=== PATIENT | female | born 1975 | race Caucasian/White ===

== ENCOUNTER 2017-07-16 17:48 | Emergency (ER) | payer BC ==
[~2017-07-16] VITALS: Ht 152.4 cm; Wt 72.6 kg
[~2017-07-16 17:48] MED LIST: AMOXIL500 MG PO; CELEXA20 MG PO; INDERAL80 MG PO; MOTRIN800 MG PO; NEXIUM2.5 MG PO; PEPCID20 MG PO; ROBITUSSIN-AC 160 ML PO; VITAMIN D50000 I3 PO
[2017-07-16 17:59] VITALS: BP 140/79
[2017-07-16] MEDS ORDERED: ANAPROX DS550 MG PO (18:44)
== END 2017-07-16 20:06 | disposition home or self-care (01) ==
LOC: ED 17:48
DX: S93.402A Sprain of unspecified ligament of left ankle, initial encounter (principal); X50.9XXA Other and unspecified overexertion or strenuous movements or postures, initial encounter; Y93.89 Activity, other specified; Y92.9 Unspecified place or not applicable; Y99.9 Unspecified external cause status

== ENCOUNTER → 2017-07-25 | Outpatient (CLI) | payer OTHER ==
[~2017-07-25] MED LIST changes: +ANAPROX DS550 MG PO
== END | disposition home or self-care (01) ==
LOC: ORTHO 14:12
DX: S90.32XA Contusion of left foot, initial encounter (principal); M79.89 Other specified soft tissue disorders; X58.XXXA Exposure to other specified factors, initial encounter; Y93.89 Activity, other specified; Y92.89 Other specified places as the place of occurrence of the external cause; Y99.8 Other external cause status

== ENCOUNTER → 2017-09-28 | Outpatient (CLI) | payer OTHER | END | disposition home or self-care (01) | LOC: MRI 14:00 | DX: S96.912A Strain of unspecified muscle and tendon at ankle and foot level, left foot, initial encounter (principal); S93.492A Sprain of other ligament of left ankle, initial encounter; M25.472 Effusion, left ankle; X58.XXXA Exposure to other specified factors, initial encounter; Y93.89 Activity, other specified; Y92.89 Other specified places as the place of occurrence of the external cause; Y99.8 Other external cause status ==

== ENCOUNTER → 2018-01-19 | Outpatient (CLI) | payer OTHER ==
[2018-01-19 14:34] LABS: BASO # 0.1 10*3/uL (0.0-0.1); BASO % 0.5 % (0.0-1.0); EOS # 0.4 10*3/uL (0.0-0.4); EOS % 3.5 % (1.0-4.0); HEMATOCRIT 39.6 % (37.0-47.0); HEMOGLOBIN 13.6 g/dl (12.0-16.0); LYMPH # 2.2 10*3/uL (1.3-4.4); LYMPH % 17.5 % (27.0-41.0); MEAN CELL VOLUME 85.7 fl (81.0-99.0); MEAN CORPUSCULAR HGB 29.4 pg (27.0-31.0); MEAN CORPUSCULAR HGB CONC 34.3 g/dl (33.0-37.0); MEAN PLATELET VOLUME 9.2 fl (9.6-12.3); MONO # 0.9 10*3/uL (0.1-1.0); MONO % 7.2 % (3.0-9.0); NEUT # 8.7 10*3/uL (2.3-7.9); NEUT % 69.8 % (47.0-73.0); PLATELET COUNT AUTOMATED 405 10*3/uL (130-400); RED BLOOD COUNT 4.62 10*6/uL (4.10-5.10); RED CELL DISTRI WIDTH 12.9 % (0-14.5); WHITE BLOOD COUNT 12.4 10*3/uL (4.8-10.8)
[2018-01-19 15:01] LABS: ALBUMIN 3.9 gm/dl (3.1-4.5); ALKALINE PHOSPHATASE 84 U/L (45-117); BUN 9 mg/dl (7-24); CHLORIDE 101 mmol/L (98-107); CREATININE 0.66 mg/dL (0.55-1.02); SGOT/AST 20 IU/L (3-35); SGPT/ALT 37 U/L (12-78); SODIUM 136 mmol/L (136-145); TOTAL PROTEIN 7.8 gm/dL (6.4-8.2)
== END | disposition home or self-care (01) ==
LOC: LAB 14:09
PROVIDERS: Internal Medicine
DX: R06.02 Shortness of breath (principal); R05 Cough; R53.83 Other fatigue; I10 Essential (primary) hypertension

== ENCOUNTER → 2023-06-14 | Outpatient (CLI) | payer BC | END | disposition home or self-care (01) | LOC: US 09:45 | PROVIDERS: ATTEND Nurse Practitioner Women's Health | DX: D25.9 Leiomyoma of uterus, unspecified (principal) ==

== ENCOUNTER → 2023-07-05 | Outpatient (CLI) | payer BC | END | disposition home or self-care (01) | LOC: LAB 15:26 | PROVIDERS: ATTEND Internal Medicine Nephrology | DX: E11.9 Type 2 diabetes mellitus without complications (principal); Z83.2 Family history of diseases of the blood and blood-forming organs and certain disorders involving the immune mechanism ==